=== PATIENT | female | born 1985 | race Caucasian/White ===

== ENCOUNTER → 2016-09-15 | Outpatient (CLI) | payer OTHER ==
--- NOTE | 2016-09-15 15:38 | MG ---
Examination: Bilateral diagnostic mammogram and right breast ultrasound. Clinical history: Right breast lump and tenderness. Technique: Multiple digital images of both breasts were obtained. Targeted right breast ultrasound w as also obtained evaluating the upper outer aspect of the right breast in the area of palpable portillo rn. Comparison: None available. Baseline mammogram. Findings: The breasts are extremely dense, reducing the sensitivity of mammography. No mammographic abnormality is evident in the area of palpable concern in the upper outer aspect of the right breast. No suspicious mass, area of architectural distortion or suspicious cluster of microcalcifications is noted. Targeted right breast ultrasound evaluating the area of palpable concern in the upper outer aspect o f the right breast reveals a circumscribed anechoic mass measuring 4 mm seen subcutaneously at the 1 1 o'clock position, consistent with a small benign cyst. An additional small 4 mm rounded anechoic m ass is also noted at the 10 o'clock position, consistent with a benign cyst. No suspicious cystic or solid mass is noted. Impression: 1. Benign cysts at the 10 o'clock and 11 o'clock position in the right breast. No mammographic or so nographic evidence of malignancy. BI-RADS category 2-benign findings. Recommend clinical management, with routine annual screening mammography to start at 40 years of age , or earlier, if clinically indicated. Diagnostic CAD was utilized and reviewed. * 0 (ZERO) - ASSESSMENT INCOMPLETE; ADDITIONAL IMAGING IS NEEDED. * 0C - ASSESSMENT INCOMPLETE, NEEDS ADDITIONAL IMAGING EVALUATION AND/OR PRIOR MAMMOGRAMS FOR COMPAR ISA. * 1/1 (ONE) - NEGATIVE. * 2/II (TWO) - BENIGN FINDINGS. * 3/III (THREE) - PROBABLY BENIGN FINDING; SHORT INTERVAL FOLLOW-UP SUGGESTED. * 4/IV (FOUR) - SUSPICIOUS ABNORMALITY; BIOPSY SHOULD BE CONSIDERED. * 5/V - HIGHLY SUSPICIOUS OF MALIGNANCY; BIOPSY SHOULD BE PERFORMED. * 6/IV - KNOWN BIOPSY PROVEN MALIGNANCY-APPROPRIATE ACTION SHOULD BE TAKEN. A NEGATIVE X-RAY REPORT SHOULD NOT DELAY BIOPSY IF A DOMINANT OR CLINICALLY SUSPICIOUS MASS IS PRESENT; 4 TO 8 PERCENT OF CANCERS ARE NOT IDENTIFIED BY X-RAY. A NEGATIVE REPORT MAY REINFORCE THE CLINICAL IMPRESSION. ADENOSIS AND DENSE BREASTS MAY OBSCURE AN UNDERLYING NEOPLASM. Reported By:
== END ==
LOC: RAD 13:11
PROVIDERS: ATTEND Obstetrics & Gynecology
DX: N60.11 Diffuse cystic mastopathy of right breast (principal)
CPT/HCPCS: 76642; 77066

== ENCOUNTER → 2017-09-21 | Outpatient (CLI) | payer OTHER ==
--- NOTE | 2017-09-21 16:32 | US ---
HISTORY: Follow-up right breast nodules Study: Right breast ultrasound Comparison: September 15, 2016 Technique: Multiple grayscale and color Doppler images of the right breast were obtained. Findings: At 10 o'clock approximately 4-5 cm from the nipple, there are horizontally oriented smoothly marginat ed and well circumscribed anechoic cysts with posterior acoustical enhancement and no internal Dopple r flow the largest of which measures 6 mm and which is stable with a more posterior lesion measuring 5 mm. Previously described 11 o'clock superficial lesion is not seen on today's exam. No suspicious c ystic or solid nodules are seen to warrant biopsy. Diffuse surrounding dense fibrocystic changes are noted. IMPRESSION: Benign simple appearing parenchymal cysts for which clinical correlation and follow-up is recommended . Patient should begin yearly mammographic screening at age 40 unless clinically indicated prior to t hat time. BI-RADS 2. Benign findings. * 0 (ZERO) - ASSESSMENT INCOMPLETE; ADDITIONAL IMAGING IS NEEDED. * 1/1 (ONE) - NEGATIVE. * 2/II (TWO) - BENIGN FINDINGS. * 3/III (THREE) - PROBABLY BENIGN FINDING; SHORT INTERVAL FOLLOW-UP SUGGESTED. * 4/IV (FOUR) - SUSPICIOUS ABNORMALITY; BIOPSY SHOULD BE CONSIDERED. * 5/V (FIVE) - HIGHLY SUSPICIOUS OF MALIGNANCY; BIOPSY SHOULD BE PERFORMED. * 6/ (SIX) - KNOWN MALIGNANCY. A NEGATIVE X-RAY REPORT SHOULD NOT DELAY BIOPSY IF A DOMINANT OR CLINICALLY SUSPICIOUS MASS IS PRESENT; 4 TO 8 PERCENT OF CANCERS ARE NOT IDENTIFIED BY X-RAY. A NEGA TIVE REPORT MAY REINFORCE THE CLINICAL IMPRESSION. ADENOSIS AND DENSE BREASTS MAY OBSCURE AN UNDERLY ING NEOPLASM. Reported By:
== END ==
LOC: RAD 12:32
PROVIDERS: ATTEND Obstetrics & Gynecology
DX: N60.21 Fibroadenosis of right breast (principal)
CPT/HCPCS: 76642